=== PATIENT | female | born 1990 | race Caucasian/White ===

== ENCOUNTER 2018-05-18 17:54 | Emergency (ER) | payer OTHER, SELFPAY ==
[2018-05-18 18:02] VITALS: BP 115/78; PULSE 92; RESP 22; TEMP 37.2; O2SAT 99
--- NOTE | 2018-05-18 18:08 | DI.RAD.S_ITS ---
PROCEDURE: XR CHEST 1V INDICATIONS: soa, lt side chest pain TECHNIQUE: One view of the chest was acquired. COMPARISON: None. FINDINGS: Surgical changes and devices: None. Lungs and pleura: No pleural effusions or pneumothorax. Lungs are clear. Mediastinum: Mediastinal contours appear normal. Heart size is normal. Bones and chest wall: No suspicious bony lesions. Overlying soft tissues appear unremarkable. IMPRESSION: No acute pulmonary process. Dictated by: Adrienne March M.D. on 05/18/2018 at 19:21 Approved by: Adrienne March M.D. on 05/18/2018 at 19:21
[2018-05-18 18:48] LABS: Add Manual Diff / Slide Review NO; Basophils Percent Auto 0.5 % (0-2); Eosinophils Percent Auto 2.5 % (2-4); Hematocrit 39.4 % (36-46); Hemoglobin 13.3 g/dL (12.0-16.0); Lymphocytes Percent Auto 27.2 % (25-40); Mean Corpuscular HGB Conc 33.7 % (30-36); Mean Corpuscular Hemoglobin 29.6 PG (26-34); Mean Corpuscular Volume 87.7 fL (80-100); Monocytes Percent Auto 4.3 % (3-14); Neutrophils Absolute Auto 7900 /uL (3000-5900); Neutrophils Percent Auto 65.5 % (50-75); Platelet Count 256 X10^3/uL (150-400); Red Blood Cell Count 4.49 X10^6/uL (4.0-5.2); Red Cell Distribution Width 13.7 % (11.6-14.8)
[2018-05-18 18:59] LABS: D Dimer 273 ng/mL (<230)
[2018-05-18 19:00] LABS: Alanine Aminotransferase 24 IU/L (9-52); Albumin 4.8 g/dL (3.5-5.0); Albumin Globulin Ratio 1.3 (1.0-2.8); Alkaline Phosphatase 64 U/L (38-126); Aspartate Aminotransferase 23 IU/L (14-36); BUN Creatinine Ratio 12.9 (6-22); Bilirubin Total 0.6 mg/dL (0.2-1.3); Blood Urea Nitrogen 9 mg/dL (7-17); Calcium 9.2 mg/dL (8.4-10.2); Carbon Dioxide 26 mmol/L (22-32); Chloride 100 mmol/L (98-107); Estimated Glomerular Filt Rate > 60.0 mL/min (>60); Globulin 3.7 g/dL (1.7-4.1); Glucose 111 mg/dL (70-100); HEMOLYSIS 27 (0-50); Potassium 3.5 mmol/L (3.4-5.1); Sodium 138 mmol/L (137-145); Total Protein 8.5 g/dL (6.3-8.2)
--- NOTE | 2018-05-18 19:17 | DI.CT.S_ITS ---
PROCEDURE: CT ABDOMEN PELVIS W CON INDICATIONS: Pain to epigastric and left upper quadrant for a couple of days TECHNIQUE: After the administration of intravenous contrast, 5 mm thick sections acquired from the diaphragm to the symphysis. 5 mm coronal and sagittal reformats were acquired. For radiation dose reduction, the following was used: automated exposure control, adjustment of mA and/or kV according to patient size. COMPARISON: None. FINDINGS: Image quality: Excellent. ABDOMEN: Lung bases: Lung bases are clear. Heart size is normal. Solid organs: Liver demonstrates steatosis. Gallbladder is unremarkable. Biliary system is non dilated. Pancreas enhances normally. Spleen is normal in size and enhancement. No adrenal nodules. Kidneys demonstrate normal size and enhancement, without hydronephrosis. Peritoneum and bowel: Bowel loops demonstrate normal wall thickness and caliber. No free fluid or air. Appendix is unremarkable. Nodes and vessels: No retroperitoneal or mesenteric adenopathy by size criteria. Aorta and inferior vena cava are normal in size. Miscellaneous: Fat containing umbilical hernia. Trace hiatal hernia. PELVIS: Genitourinary: Bladder wall thickness is normal. Intrauterine device is present. There is a rim-enhancing focus of low attenuation within the left adnexa measuring 26 mm. Miscellaneous: No inguinal hernias or adenopathy. Bones: No suspicious bony lesions. No vertebral body compression fractures. IMPRESSION: 1. Enhancing low attenuation focus within the left adnexa suggestive of hemorrhagic cyst. Dictated by: Adrienne March M.D. on 05/18/2018 at 20:39 Approved by: Adrienne March M.D. on 05/18/2018 at 20:41
[2018-05-18 19:30] LABS: Creatine Kinase 87 U/L (30-135); Lipase 79 U/L (23-300)
--- NOTE | 2018-05-18 19:37 | ED_ITS ---
HPI - URI/Sore Throat <LUDA Turpin - Last Filed: 05/18/18 22:31> General Chief Complaint: Upper Respiratory Symptoms Stated Complaint: CHEST PAIN SOB Time Seen by Provider: 05/18/18 18:30 Source: patient Mode of arrival: ambulatory Limitations: no limitations History of Present Illness HPI Narrative: 19-year-old female here for complaint having pain into her left upper quadrant area and also into her chest area since early this morning. She denies any trauma to the area. She reports increased pain with movement to the torso. She also reports pain with palpation to the area. No nausea or vomiting. She denies any relievers of her pain. She denies any fevers or chills. No other concerns or complaints. Urinalysis was negative for urinary tract infection or for . Signs and symptoms presents as abdominal wall pain. [id number] Tylenol Motrin as needed for any discomfort. Follow up with primary care provider for further evaluation and treatment and supervision of ovarian cyst. For any worsening symptoms return emergency room. Related Data Home Medications Medication Instructions Recorded Confirmed melatonin [Meladox] 3 mg PO #0 02/28/17 Previous Rx's Medication Instructions Recorded clindamycin HCl 300 mg PO Q6H #28 cap 02/28/17 Allergies Allergy/AdvReac Type Severity Reaction Status Date / Time doxycycline [DOXYCYCLINE] Allergy Unknown Unverified 01/14/18 12:44 Review of Systems <LUDA Turpin - Last Filed: 05/18/18 22:31> Constitutional Denies chills, Denies fever(s), Denies lethargy and Denies weakness Eyes Denies change in vision, Denies eye discharge, Denies irritation and Denies loss of vision ENT Ears, Nose, Mouth, and Throat: Denies change in voice, Denies neck pain and Denies sore throat Cardiovascular Reports chest pain, Denies irregular heart rhythm, Denies lightheadedness, Denies palpitations, Denies dyspnea, Denies dyspnea on exertion and Denies orthopnea Respiratory Denies cough, Denies dyspnea, Denies dyspnea on exertion and Denies wheezing Gastrointestinal Gastrointestinal: Reports abdominal pain, Denies change in bowel habits, Denies diarrhea, Denies nausea and Denies vomiting Genitourinary Denies hematuria, Denies flank pain, Denies urinary incontinence and Denies urinary urgency Musculoskeletal Denies neck pain Integumentary/Breasts Denies pruritus, Denies erythema, Denies rash and Denies wounds Neurologic Denies confusion, Denies loss of vision and Denies weakness Psychiatric Denies anxiety, Denies confusion, Denies depression, Denies homicidal ideation and Denies suicidal ideation Endocrine Denies palpitations Hematologic/Lymphatic Denies easy bruising Allergic/Immunologic Denies wheezing Exam <LUDA Turpin - Last Filed: 05/18/18 22:31> Initial Vital Signs Initial Vital Signs: Vital Signs Temperature 99.0 F 05/18/18 18:02 Pulse Rate 92 H 05/18/18 18:02 Respiratory Rate 22 05/18/18 18:02 Blood Pressure 115/78 05/18/18 18:02 Pulse Oximetry 99 05/18/18 18:02 Const General: cooperative and well developed Nutritional Appearance: well nourished Orientation: alert, awake, oriented x3 and not confused HENMT Mouth: oral mucosae normal and moist mucous membranes Eyes Conjunctivae: conjunctivae normal Sclera: sclerae normal Pupils: PERRL EOM: EOM intact bilaterally Chest Chest: normal inspection of the chest Resp Effort & Inspection: normal respiratory effort, able to speak in complete sentences, no respiratory distress and no use of accessory muscles Auscultation: clear to auscultation bilaterally, no rales, no rhonchi and no wheezes Cardio Rate: regular rate Rhythm: regular rhythm Heart Sounds: no click, no gallops, no murmurs and no rubs GI Inspection: non-distended Palpation: soft, no hepatosplenomegaly, No guarding, No pulsatile mass and tender (Tenderness on palpation to left upper quadrant) Auscultation: normal bowel sounds Skin General: no rashes or lesions noted, No jaundice and No petechiae Neuro General: alert, oriented x3, gait normal and no focal motor deficits Speech: speech normal <Jessica Daniels DO - Last Filed: 05/19/18 04:20> Initial Vital Signs Initial Vital Signs: Vital Signs Temperature 99.0 F 05/18/18 18:02 Pulse Rate 92 H 05/18/18 18:02 Respiratory Rate 22 05/18/18 18:02 Blood Pressure 115/78 05/18/18 18:02 Pulse Oximetry 99 05/18/18 18:02 Course <LUDA Turpin Last Filed: 05/18/18 22:31> Orders Ordered: Discontinued Medications Hydromorphone HCl (Dilaudid) 0.5 mg IV NOW ONE Stop: 05/18/18 19:16 Last Admin: 05/18/18 20:08 Dose: Not Given Ondansetron HCl (Zofran) 4 mg IV NOW ONE Stop: 05/18/18 19:16 Last Admin: 05/18/18 20:08 Dose: Not Given Vital Signs - 8 hr 05/18/18 21:20 Temperature 98.3 F Pulse Rate 82 Respiratory Rate 16 Blood Pressure 109/69 Pulse Oximetry 100 <Jessica Daniels DO - Last Filed: 05/19/18 04:20> Orders Ordered: Discontinued Medications Hydromorphone HCl (Dilaudid) 0.5 mg IV NOW ONE Stop: 05/18/18 19:16 Last Admin: 05/18/18 20:08 Dose: Not Given Ondansetron HCl (Zofran) 4 mg IV NOW ONE Stop: 05/18/18 19:16 Last Admin: 05/18/18 20:08 Dose: Not Given Vital Signs - 8 hr 05/18/18 21:20 Temperature 98.3 F Pulse Rate 82 Respiratory Rate 16 Blood Pressure 109/69 Pulse Oximetry 100 MDM - URI/Sore Throat <LUDA Turpin - Last Filed: 05/18/18 22:31> Lab Data Result diagrams: 05/18/18 18:37 05/18/18 18:37 Lab Results 05/18/18 05/18/18 05/18/18 Range/Units 18:37 18:37 18:37 WBC 12.0 H (4.5-11.0) X10^3/uL RBC 4.49 (4.0-5.2) X10^6/uL Hgb 13.3 (12.0-16.0) g/dL Hct 39.4 (36-46) % MCV 87.7 (80-100) fL MCH 29.6 (26-34) PG MCHC 33.7 (30-36) % RDW 13.7 (11.6-14.8) % Plt Count 256 (150-400) X10^3/uL Neut % (Auto) 65.5 (50-75) % Lymph % (Auto) 27.2 (25-40) % [place] % (Auto) 4.3 (3-14) % Eos % (Auto) 2.5 (2-4) % Baso % (Auto) 0.5 (0-2) % Neut # (Auto) 7900 H (2543-1367) /uL D-Dimer 273 H (<230) ng/mL Sodium 138 (137-145) mmol/L Potassium 3.5 (3.4-5.1) mmol/L Chloride 100 (98-107) mmol/L Carbon Dioxide 26 (22-32) mmol/L BUN 9 (7-17) mg/dL Creatinine 0.70 (0.52-1.04) mg/dL Estimated GFR > 60.0 (>60) mL/min BUN/Creatinine Ratio 12.9 (6-22) Glucose 111 H (70-100) mg/dL Calcium 9.2 (8.4-10.2) mg/dL Total Bilirubin 0.6 (0.2-1.3) mg/dL AST 23 (14-36) IU/L ALT 24 (9-52) IU/L Alkaline Phosphatase 64 (38-126) U/L Total Creatine Kinase 87 (30-135) U/L Troponin I < 0.012 (0.01-0.034) ng/mL Total Protein 8.5 H (6.3-8.2) g/dL Albumin 4.8 (3.5-5.0) g/dL Globulin 3.7 (1.7-4.1) g/dL Albumin/Globulin Ratio 1.3 (1.0-2.8) Lipase 79 (23-300) U/L Imaging Data Chest x-ray: Radiologist's impression: Patient: Kalina Reno MR#: [id number] : 1990 Acct:[id number] Age/Sex: 27 / F Date of Service: 05/18/18 Loc: ED Accession Number: [id number] Procedure: XR chest 1V Ordering Provider: Guillermo Singh D.O. PROCEDURE: XR CHEST 1V INDICATIONS: soa, lt side chest pain TECHNIQUE: One view of the chest was acquired. COMPARISON: None. FINDINGS: Surgical changes and devices: None. Lungs and pleura: No pleural effusions or pneumothorax. Lungs are clear. Mediastinum: Mediastinal contours appear normal. Heart size is normal. Bones and chest wall: No suspicious bony lesions. Overlying soft tissues appear unremarkable. IMPRESSION: No acute pulmonary process. Dictated by: Adrienne March M.D. on 05/18/2018 at 19:21 Approved by: Adrienne March M.D. on 05/18/2018 at 19:21 CT scan - abdomen: Radiologist's impression: PROCEDURE: CT ABDOMEN PELVIS W CON INDICATIONS: Pain to epigastric and left upper quadrant for a couple of days TECHNIQUE: After the administration of intravenous contrast, 5 mm thick sections acquired from the diaphragm to the symphysis. 5 mm coronal and sagittal reformats were acquired. For radiation dose reduction, the following was used: automated exposure control, adjustment of mA and/or kV according to patient size. COMPARISON: None. FINDINGS: Image quality: Excellent. ABDOMEN: Lung bases: Lung bases are clear. Heart size is normal. Solid organs: Liver demonstrates steatosis. Gallbladder is unremarkable. Biliary system is non dilated. Pancreas enhances normally. Spleen is normal in size and enhancement. No adrenal nodules. Kidneys demonstrate normal size and enhancement, without hydronephrosis. Peritoneum and bowel: Bowel loops demonstrate normal wall thickness and caliber. No free fluid or air. Appendix is unremarkable. Nodes and vessels: No retroperitoneal or mesenteric adenopathy by size criteria. Aorta and inferior vena cava are normal in size. Miscellaneous: Fat containing umbilical hernia. Trace hiatal hernia. PELVIS: Genitourinary: Bladder wall thickness is normal. Intrauterine device is present. There is a rim-enhancing focus of low attenuation within the left adnexa measuring 26 mm. Miscellaneous: No inguinal hernias or adenopathy. Bones: No suspicious bony lesions. No vertebral body compression fractures. IMPRESSION: 1. Enhancing low attenuation focus within the left adnexa suggestive of hemorrhagic cyst. Dictated by: Adrienne March M.D. on 05/18/2018 at 20:39 Approved by: Adrienne March M.D. on 05/18/2018 at 20:41 ECG Data Interpretation: EKG shows normal sinus rhythm with no ST elevation or depression ventricular rate of 86. Pr interval of 149. QRS duration of 85. QT of 352. MDM Narrative Medical decision making narrative: CBC and Chem panel were obtained and were unremarkable. Troponin was obtained was negative. D-dimer was obtained was negative. EKG shows normal sinus rhythm with no ST elevation or depression. Lipase was obtained was negative. Chest x-ray was negative for any acute findings. Abdominal CT was obtained and shows that she had a 26 mm area of low attenuation suggestive of hemorrhagic cyst to left adnexal. Signs and symptoms presents as abdominal wall pain. [id number] Tylenol Motrin as needed for any discomfort. Follow up with primary care provider later this week for re- evaluation. And also for supervision of adnexal cyst. <Jessica Daniels, DO - Last Filed: 05/19/18 04:20> Lab Data Attestation: I reviewed the patient's lab results. Lab Results 05/18/18 05/18/18 05/18/18 Range/Units 18:37 18:37 18:37 WBC 12.0 H (4.5-11.0) X10^3/uL RBC 4.49 (4.0-5.2) X10^6/uL Hgb 13.3 (12.0-16.0) g/dL Hct 39.4 (36-46) % MCV 87.7 (80-100) fL MCH 29.6 (26-34) PG MCHC 33.7 (30-36) % RDW 13.7 (11.6-14.8) % Plt Count 256 (150-400) X10^3/uL Neut % (Auto) 65.5 (50-75) % Lymph % (Auto) 27.2 (25-40) % [place] % (Auto) 4.3 (3-14) % Eos % (Auto) 2.5 (2-4) % Baso % (Auto) 0.5 (0-2) % Neut # (Auto) 7900 H (5259-1022) /uL D-Dimer 273 H (<230) ng/mL Sodium 138 (137-145) mmol/L Potassium 3.5 (3.4-5.1) mmol/L Chloride 100 (98-107) mmol/L Carbon Dioxide 26 (22-32) mmol/L BUN 9 (7-17) mg/dL Creatinine 0.70 (0.52-1.04) mg/dL Estimated GFR > 60.0 (>60) mL/min BUN/Creatinine Ratio 12.9 (6-22) Glucose 111 H (70-100) mg/dL Calcium 9.2 (8.4-10.2) mg/dL Total Bilirubin 0.6 (0.2-1.3) mg/dL AST 23 (14-36) IU/L ALT 24 (9-52) IU/L Alkaline Phosphatase 64 (38-126) U/L Total Creatine Kinase 87 (30-135) U/L Troponin I < 0.012 (0.01-0.034) ng/mL Total Protein 8.5 H (6.3-8.2) g/dL Albumin 4.8 (3.5-5.0) g/dL Globulin 3.7 (1.7-4.1) g/dL Albumin/Globulin Ratio 1.3 (1.0-2.8) Lipase 79 (23-300) U/L ECG Data Attestation: I personally reviewed and interpreted this ECG as follows: Prior ECG tracings: not available for review Interpretation: No rate 86 normal intervals no acute ST changes Discharge Plan Departure Patient Disposition: Home, Self-Care Clinical Impression: Abdominal wall pain, Ovarian cyst Discharge Date/Time: 05/18/18 21:21 Interventions: ED Discharge Assessment Last Done: 05/18/18 21:20 Instructions: DI for Abdominal Muscle Strain Activity Restrictions/Additional Instructions: Laboratory results today were unremarkable. Chest x-ray was obtained was negative for any acute findings. Abdominal CT shows signs of ovarian cyst doubtful is causing any ear symptoms. Signs and symptoms of your pain today is due to abdominal wall muscle pain. Use [id number] Tylenol or Motrin as needed for any discomfort. Follow up with primary care provider later this week for re-evaluation and for supervision of ovarian cyst. For any worsening symptoms return to the emergency room. Prescriptions: No Action melatonin [Meladox] 3 MG tablet extended release 3 mg PO Qty: 0 RF: 0 clindamycin HCl 300 MG capsule 300 mg PO Q6H Qty: 28 RF: 0 Referrals: [facility] [Provider Group] <Jessica Daniels DO - Last Filed: 05/19/18 04:20> Cosign ED Attending Jermain Attestation: I was immediately available in the department for consultation. Documentation has been reviewed. I agree with assessment and plan.
[2018-05-18 19:44] LABS: Troponin I < 0.012 ng/mL (0.01-0.034)
--- NOTE | 2018-05-18 20:04 | PC.NURSE ---
pt refused dilaudid. states I'm doing fine on acetaminophen. pt refused zofran stated I am not nausous at all. Pt is taking PO fluids.
[2018-05-18 20:16] VITALS: BP 120/82; PULSE 85; RESP 18; TEMP 36.7; O2SAT 100
[2018-05-18 21:20] VITALS: BP 109/69; PULSE 82; RESP 16; TEMP 36.8; O2SAT 100
== END 2018-05-18 21:21 | disposition home or self-care (01) ==
PROVIDERS: Emergency Medicine; Emergency Provider Nurse Practitioner Family
DX: R10.9 Unspecified abdominal pain (principal); N83.209 Unspecified ovarian cyst, unspecified side
CPT/HCPCS: 36591; 71045; 74177; 80053; 81003; 81025; 82550; 82553; 83690; 84484; 85025; 85379; 93005; 93010; 99283; 99285; Q9967